=== PATIENT | female | born 1945 | race Caucasian/White ===

== ENCOUNTER 2017-07-10 13:51 | Inpatient (IN) | payer OTHER ==
[~2017-07-10] VITALS: Ht 162.6 cm; Wt 66.2 kg
== END 2017-07-14 18:29 | disposition home or self-care (01) | DRG 378 ==
LOC: ER 13:51 → SEC-K 07-11 09:13 → MEDI 07-11 09:13
PROC: 30233N1 Transfusion of Nonautologous Red Blood Cells into Peripheral Vein, Percutaneous Approach (ICD-10-PCS; 2017-07-11)
PROC: 0DB78ZX Excision of Stomach, Pylorus, Via Natural or Artificial Opening Endoscopic, Diagnostic (ICD-10-PCS; principal; 2017-07-14)
DX: K92.1 Melena (principal); D62 Acute posthemorrhagic anemia; E86.0 Dehydration; I10 Essential (primary) hypertension; K25.9 Gastric ulcer, unspecified as acute or chronic, without hemorrhage or perforation